=== PATIENT | female | born 1960 | race Caucasian/White ===

== ENCOUNTER 2017-05-13 09:12 | Outpatient (CLI) | payer OTHER | END 2017-05-13 09:13 | disposition critical access hospital (66) | LOC: EMS 09:12 | PROVIDERS: ATTEND Surgery | DX: R56.9 Unspecified convulsions (principal) | CPT/HCPCS: A0425; A0429 ==

== ENCOUNTER 2017-05-13 09:27 | Emergency (ER) | payer MEDICAID, OTHER ==
--- NOTE | 2017-05-13 10:28 | ED Physician Documentation ---
PD HPI SEIZURE - Stated complaint Stated Complaint: SZ - Chief complaint Chief Complaint: Neuro - History obtained from History obtained from: Patient, EMS - History of Present Illness Timing - onset: Last night (she has had headache worsening for 4 days, then with loss of consciousness last night after) Witnessed: Witnessed (this morning), Unwitnessed (last evening) Number of seizures: Multiple, Lasted minutes (1-2 minutes the one this morning; unknown last night as unwitnessed.) Description of seizure activity: Generalized Injury during seizure: Bit tongue. No: Head injury Associated symptoms: Headache (for 4 days) History of seizures: No: Known seizure disorder, Prior EtOH wdrawal sz, Prior TBI Contributing factors: No: Changed meds, Low blood sugar, EtOH withdrawal, Benzo withdrawal Similar symptoms before: Has not had sx before Recently seen: Not recently seen Review of Systems Constitutional: denies: Fever, Chills, Myalgias Eyes: reports: Loss of vision (right eye feeling blurred for 1-2 days.) Nose: denies: Rhinorrhea / runny nose, Congestion Throat: denies: Sore throat Cardiac: denies: Chest pain / pressure, Palpitations Respiratory: denies: Dyspnea, Cough GI: reports: Nausea. denies: Abdominal Pain, Vomiting, Diarrhea : denies: Dysuria, Frequency Skin: denies: Rash, Lesions Musculoskeletal: reports: Other (recent travel by plane from [place] last week.) Neurologic: reports: Generalized weakness. denies: Focal weakness, Numbness Psychiatric: denies: Depressed, Hallucinations, Anxiety, Insomnia Endocrine: denies: Weight loss, Easy bruising / bleeding Immunocompromised: denies: Immunocompromised PD PAST MEDICAL HISTORY - Past Medical History Cardiovascular: None Respiratory: None Neuro: None Endocrine/Autoimmune: None Psych: None Musculoskeletal: None Derm: None - Present Medications Home Medications: Ambulatory Orders Medication Instructions Recorded Confirmed Hydrocodone/Acetaminophen [Vicodin 1 tab PO Q6H PRN 05/13/17 05/13/17 5-300 mg Tablet] Levothyroxine Sodium [Synthroid] 88 mg PO DAILY 05/13/17 05/13/17 QUEtiapine [SEROquel] 25 mg PO DAILY PM 05/13/17 05/13/17 SUMAtriptan [Imitrex] 05/13/17 Venlafaxine ER [Effexor ER] 150 mg PO DAILY 05/13/17 05/13/17 - Allergies Allergies/Adverse Reactions: Allergies Allergy/AdvReac Type Severity Reaction Status Date / Time No Known Drug Allergies Allergy Verified 05/13/17 09:42 - Living Situation Living Situation: reports: With spouse/s.o. Living Arrangement: reports: At home - Social History Does the pt smoke?: No Does the pt drink ETOH?: Yes ETOH Use: Other (just occasional 2-3 times per week) Does the pt have substance abuse?: No - Family History Family history: reports: Non contributory, Other (no clotting disorders in family) PD ED PE NORMAL - Vitals Vital signs reviewed: Yes - General General: Alert and oriented X 3, No acute distress, Well developed/nourished - HEENT HEENT: Atraumatic, Pharynx benign, Other (left tongue abrasions c/w seizure. ) - Neck Neck: Supple, no meningeal sign, No adenopathy, No JVD, No bruit - Cardiac Cardiac: RRR, No murmur - Respiratory Respiratory: Clear bilaterally - Abdomen Abdomen: Soft, Non tender - Female Female : Deferred - Rectal Rectal: Deferred - Back Back: No CVA TTP, No spinal TTP - Derm Derm: Normal color - Extremities Extremities: No deformity, No tenderness to palpate, Normal ROM s pain, No edema , No calf tenderness / cord - Neuro Neuro: Alert and oriented X 3, solderer production line 2-12 intact, No motor deficit, No sensory deficit, Normal speech Eye Opening: Spontaneous Motor: Obeys Commands Verbal: Oriented GCS Score: 15 - Psych Psych: Normal mood, Normal affect Results - Vitals Vitals: Vital Signs - 24 hr 05/13/17 05/13/17 05/13/17 09:33 10:00 11:00 Temperature 37 C Heart Rate 74 94 90 Respiratory 20 16 16 Rate Blood Pressure 140/86 H 133/86 H 136/90 H O2 Saturation 97 96 96 05/13/17 11:33 Temperature Heart Rate 90 Respiratory 16 Rate Blood Pressure 132/85 H O2 Saturation 96 Oxygen O2 Source Room air - EKG (time done) 09:32 Rate: Rate (enter#) Rhythm: Sinus tachycardia, NSR [place]: Normal Intervals: Normal MD QRS: Normal Ischemia: Normal ST segments. No: ST elevation c/w ischemia, ST depression - Labs Labs: Laboratory Tests 05/13/17 05/13/17 05/13/17 10:51 10:51 10:51 WBC 10.4 RBC 4.80 Hgb 14.2 Hct 42.5 MCV 88.6 MCH 29.7 MCHC 33.5 RDW 13.2 Plt Count 259 MPV 6.9 L Neut # 8.7 H Lymph # 0.9 L Milam # 0.7 Eos # 0.0 Baso # 0.1 Absolute Nucleated RBC 0.01 Nucleated RBC % 0.1 PT INR APTT Sodium 138 Potassium 4.5 Chloride 106 Carbon Dioxide 21 Anion Gap 11.0 BUN 15 Creatinine 0.8 Estimated GFR (MDRD) 74 L Glucose 113 H Calcium 8.8 Total Bilirubin 0.2 AST 32 ALT 35 Alkaline Phosphatase 96 Total Creatine Kinase 301 H Total Protein 7.1 Albumin 4.2 Globulin 2.9 Albumin/Globulin Ratio 1.4 Lipase 16 L TSH 4.78 Urine Color Urine Clarity Urine pH Ur Specific [place] Urine Protein Urine Glucose (UA) Urine Ketones Urine Occult Blood Urine Nitrite Urine Bilirubin Urine Urobilinogen Ur Leukocyte Esterase Urine RBC Urine WBC Ur Squamous Epith Cells Urine Bacteria Ur Microscopic Review Urine Culture Comments Urine Opiates Screen Ur Oxycodone Screen Urine Methadone Screen Ur Propoxyphene Screen Ur Barbiturates Screen Ur Tricyclics Screen Ur Phencyclidine Scrn Ur Amphetamine Screen U Methamphetamines Scrn U Benzodiazepines Scrn Urine Cocaine Screen U Cannabinoids Screen Ethyl Alcohol < 5.0 05/13/17 05/13/17 10:51 11:59 WBC RBC Hgb Hct MCV MCH MCHC RDW Plt Count MPV Neut # Lymph # [place] # Eos # Baso # Absolute Nucleated RBC Nucleated RBC % PT 11.2 INR 1.0 APTT 28.6 Sodium Potassium Chloride Carbon Dioxide Anion Gap BUN Creatinine Estimated GFR (MDRD) Glucose Calcium Total Bilirubin AST ALT Alkaline Phosphatase Total Creatine Kinase Total Protein Albumin Globulin Albumin/Globulin Ratio Lipase TSH Urine Color YELLOW Urine Clarity CLEAR Urine pH 6.0 Ur Specific [place] 1.015 Urine Protein NEGATIVE Urine Glucose (UA) NEGATIVE Urine Ketones NEGATIVE Urine Occult Blood SMALL H Urine Nitrite NEGATIVE Urine Bilirubin NEGATIVE Urine Urobilinogen 0.2 (NORMAL) Ur Leukocyte Esterase NEGATIVE Urine RBC 0-5 Urine WBC 0-3 Ur Squamous Epith Cells FEW Squamous Urine Bacteria Few Ur Microscopic Review INDICATED Urine Culture Comments NOT INDICATED Urine Opiates Screen NEGATIVE Ur Oxycodone Screen NEGATIVE Urine Methadone Screen NEGATIVE Ur Propoxyphene Screen NEGATIVE Ur Barbiturates Screen NEGATIVE Ur Tricyclics Screen NEGATIVE Ur Phencyclidine Scrn NEGATIVE Ur Amphetamine Screen NEGATIVE U Methamphetamines Scrn NEGATIVE U Benzodiazepines Scrn NEGATIVE Urine Cocaine Screen NEGATIVE U Cannabinoids Screen NEGATIVE Ethyl Alcohol - Rads (name of study) head CT Radiology: Prelim report reviewed (extensive dural sinus thrombosis) PD MEDICAL DECISION MAKING - ED course Complexity details: reviewed results, considered differential, d/w patient, d/w jewelry consultant (Dr. Lozoya, [facility], who referred it to [facility]. Talked with Zee Jefferson, Neurology, who accepts transfer. ) Departure - Departure Disposition: 02 Transfer Acute Care Hosp Clinical Impression: New onset seizure, Dural venous sinus thrombosis Headache Qualifiers: Headache type: unspecified Headache chronicity pattern: acute headache Intractability: intractable Qualified Code(s): R51 - Headache Condition: Stable Record reviewed to determine appropriate education?: Yes
[2017-05-13] MEDS ORDERED: SODIUM CHLORIDE 0.9% 1,000 ML IV ONE (10:44)
[2017-05-13] MEDS ORDERED: ACETAMINOPHEN 325 MG TABLET PO STA (10:44)
[2017-05-13] MEDS ORDERED: ACETAMINOPHEN 325 MG TABLET PO ONE (10:52)
[2017-05-13 10:55] LABS: BASOPHILS # (AUTO) 0.1 10^3/uL (0.0-0.1); BASOPHILS % (AUTO) 0.5 %; EOSINOPHILS % (AUTO) 0.2 %; HCT - HEMATOCRIT 42.5 % (37.0-47.0); HGB - HEMOGLOBIN 14.2 g/dL (12.0-16.0); LYMPHOCYTES # (AUTO) 0.9 10^3/uL (1.5-3.5); LYMPHOCYTES % (AUTO) 8.6 %; MEAN CORPUSCULAR HEMOGLOBIN 29.7 pg (27.0-31.0); MEAN CORPUSCULAR HGB CONC 33.5 g/dL (32.0-36.0); MEAN CORPUSCULAR VOLUME 88.6 fL (81.0-99.0); MEAN PLATELET VOLUME 6.9 fL (7.9-10.8); MONOCYTES # (AUTO) 0.7 10^3/uL (0.0-1.0); MONOCYTES % (AUTO) 6.8 %; NEUTROPHILS # (AUTO) 8.7 10^3/uL (1.5-6.6); NEUTROPHILS % (AUTO) 83.9 %; NUCLEATED RED BLOOD CELLS AUTO 0.1 /100WBC; RED CELL DISTRIBUTION WIDTH 13.2 % (12.0-15.0); UNCORRECTED WHITE BLOOD COUNT 10.4 x10^3/uL; WHITE BLOOD COUNT 10.4 x10^3/uL (4.8-10.8)
[2017-05-13 11:11] LABS: ALBUMIN/GLOBULIN RATIO 1.4 (1.0-2.2); BILIRUBIN,TOTAL 0.2 mg/dL (0.2-1.0); BUN - BLOOD UREA NITROGEN 15 mg/dL (6-20); CALCIUM 8.8 mg/dL (8.5-10.3); CARBON DIOXIDE - CO2 21 mmol/L (21-32); CHLORIDE 106 mmol/L (101-111); CREATININE 0.8 mg/dL (0.4-1.0); GFR - MDRD 74 (>89); GLUCOSE 113 mg/dL (70-100); LIPASE 16 U/L (22-51); POTASSIUM 4.5 mmol/L (3.5-5.0); SODIUM 138 mmol/L (135-145); TOTAL PROTEIN 7.1 g/dL (6.7-8.2)
--- NOTE | 2017-05-13 11:34 | CT Preliminary Report ---
Exam: CT HEAD W/O IMPRESSION: 1. Extensive dural sinus thrombosis. CT venography could be done as baseline exam for subsequent foll ow-up. CRITICAL RESULT: The findings were discussed with Dr. Melendez on date of exam at 11:29 AM. [facility] SITE ID: [id number]
--- NOTE | 2017-05-13 11:36 | CT Report ---
EXAM: CT HEAD EXAM DATE: 05/13/2017 11:06 AM. CLINICAL HISTORY: Headache 4 days; seizure last night/today. COMPARISON: None. TECHNIQUE: Multiaxial CT images were obtained from the foramen magnum to the vertex. Reformats: Coron al. IV contrast: None. In accordance with CT protocol optimization, one or more of the following dose reduction techniques w ere utilized for this exam: automated exposure control, adjustment of mA and/or KV based on patient s ize, or use of iterative reconstructive technique. FINDINGS: Parenchyma: No intraparenchymal hemorrhage. No evidence of mass, midline shift, or CT findings of inf arction. Lundberg-white differentiation is distinct. Extraaxial Spaces: Extensive elongated hyperdensity within superior sagittal sinus, right anterior f rontal cortical veins and possibly transverse sinuses. Findings are compatible with dural sinus throm bosis. Ventricles: Normal in size and position. Sinuses and Orbits: Imaged paranasal sinuses, orbits, and mastoids show no significant abnormality. Bones: No evidence of fracture or calvarial defect. Other: None. IMPRESSION: 1. Extensive dural sinus thrombosis. CT venography could be done as baseline exam for subsequent foll ow-up. CRITICAL RESULT: The findings were discussed with Dr. Melendez on date of exam at 11:29 AM. [facility] Referring Provider Line: [phone] SITE ID: [id number]
[2017-05-13] MEDS ORDERED: HEPARIN 25,000 UNITS/500 ML NS 25,000 UNIT/500 ML BAG IV STA (11:44)
[2017-05-13] MEDS ORDERED: HEPARIN 5,000 UNIT/ML VIAL IVP STA (11:44)
[2017-05-13 11:59] LABS: PT - PROTHROMBIN TIME 11.2 secs (9.9-12.6)
[2017-05-13 12:06] LABS: PARTIAL THROMBOPLASTIN TIME 28.6 secs (24.9-33.3)
[2017-05-13] MEDS ORDERED: HEPARIN 25,000 UNITS/500 ML NS 25,000 UNIT/500 ML BAG IV ONE (12:06)
[2017-05-13] MEDS ORDERED: HEPARIN 5,000 UNIT/ML VIAL ONE (12:06)
[2017-05-13] MEDS ORDERED: levETIRAcetam INJ 500 MG in SODIUM CHLORIDE 0.9% 100ML 100 ML IV STA (12:13)
[2017-05-13] MEDS ORDERED: HYDROmorphone 0.5 MG/0.5 ML SYRINGE IVP STA (12:33)
[2017-05-13] MEDS ORDERED: HYDROmorphone 1 MG/ML SYRINGE ONE (12:36)
[2017-05-13] MEDS ORDERED: diazePAM INJ 5 MG/ML SYRINGE IVP STA (12:57)
[2017-05-13 13:05] LABS: BILIRUBIN,URINE NEGATIVE (NEGATIVE)
[2017-05-13 13:07] LABS: UA w/ MICROSCOPIC CHARGE YES
[2017-05-13] MEDS ORDERED: diazePAM INJ 5 MG/ML SYRINGE ONE (13:09)
[2017-05-13 13:26] LABS: UR CULTURE IF IND NOT INDICATED; WBC,URINE 0-3 /HPF (0-5)
[2017-05-13 15:20] VITALS: BP 111/68
== END 2017-05-13 15:20 | disposition short-term general hospital (02) ==
LOC: EDUNIT# → ED 09:27
DX: R56.9 Unspecified convulsions (principal); I82.890 Acute embolism and thrombosis of other specified veins; R51 Headache
CPT/HCPCS: 36415; 70450; 80053; 80306; 80320; 81001; 82550; 83690; 84443; 85025; 85610; 85730; 93005; 96361; 96365; 96366; 96368; 96375; 96376; 99284; 99285; A9270; J1170; 81003; 87086

== ENCOUNTER 2017-05-13 15:30 | Outpatient (CLI) | payer OTHER | END 2017-05-13 15:31 | disposition short-term general hospital (02) | LOC: EMS 15:30 | PROVIDERS: ATTEND Surgery | DX: R56.9 Unspecified convulsions (principal) | CPT/HCPCS: A0170; A0425; A0426 ==

== ENCOUNTER 2017-05-19 13:28 | Outpatient (CLI) | payer OTHER | END 2017-05-19 13:29 | disposition home or self-care (01) | LOC: LAB 13:28 | PROVIDERS: ATTEND Family Medicine | DX: G08 Intracranial and intraspinal phlebitis and thrombophlebitis (principal) | CPT/HCPCS: 85610 ==

== ENCOUNTER 2017-05-20 15:50 | Outpatient (CLI) | payer OTHER ==
[2017-05-20 16:34] LABS: INR 2.4 (0.8-1.2); PT - PROTHROMBIN TIME 25.7 secs (9.9-12.6)
== END 2017-05-20 15:51 | disposition home or self-care (01) ==
LOC: LAB 15:50
PROVIDERS: ATTEND Family Medicine
DX: G08 Intracranial and intraspinal phlebitis and thrombophlebitis (principal)
CPT/HCPCS: 36415; 85610

== ENCOUNTER 2017-05-25 15:58 | Outpatient (CLI) | payer OTHER | END 2017-05-25 15:59 | disposition home or self-care (01) | LOC: LAB 15:58 | PROVIDERS: ATTEND Family Medicine | DX: Z79.01 Long term (current) use of anticoagulants (principal); G08 Intracranial and intraspinal phlebitis and thrombophlebitis | CPT/HCPCS: 85610 ==

== ENCOUNTER 2017-05-27 12:03 | Outpatient (CLI) | payer OTHER | END 2017-05-27 12:04 | disposition home or self-care (01) | LOC: LAB 12:03 | PROVIDERS: ATTEND Family Medicine | DX: G08 Intracranial and intraspinal phlebitis and thrombophlebitis (principal) | CPT/HCPCS: 85610 ==

== ENCOUNTER 2017-05-30 11:11 | Outpatient (CLI) | payer OTHER ==
[2017-05-30 12:00] LABS: INR 3.6 (0.8-1.2); PT - PROTHROMBIN TIME 38.4 secs (9.9-12.6)
== END 2017-05-30 11:12 | disposition home or self-care (01) ==
LOC: LAB 11:11
PROVIDERS: ATTEND Family Medicine
DX: G08 Intracranial and intraspinal phlebitis and thrombophlebitis (principal)
CPT/HCPCS: 36415; 85610

== ENCOUNTER 2017-06-03 14:01 | Outpatient (CLI) | payer OTHER | END 2017-06-03 14:02 | disposition home or self-care (01) | LOC: LAB 14:01 | PROVIDERS: ATTEND Family Medicine | DX: G08 Intracranial and intraspinal phlebitis and thrombophlebitis (principal) | CPT/HCPCS: 85610 ==

== ENCOUNTER 2017-06-06 13:51 | Outpatient (CLI) | payer OTHER | END 2017-06-06 13:52 | disposition home or self-care (01) | LOC: LAB 13:51 | PROVIDERS: ATTEND Family Medicine | DX: G08 Intracranial and intraspinal phlebitis and thrombophlebitis (principal) | CPT/HCPCS: 85610 ==

== ENCOUNTER 2017-11-11 13:33 | Outpatient (CLI) | payer MEDICAID | END 2017-11-11 13:34 | disposition home or self-care (01) | LOC: LAB 13:33 | PROVIDERS: ATTEND Family Medicine | DX: D68.52 Prothrombin gene mutation (principal); Z79.01 Long term (current) use of anticoagulants | CPT/HCPCS: 36415; 85610 ==

== ENCOUNTER 2018-05-29 15:36 | Outpatient (CLI) | payer MEDICAID ==
[2018-05-29 16:09] LABS: PT - PROTHROMBIN TIME 51.7 secs (9.9-12.6)
[2018-05-29 16:20] LABS: INR 4.6 (0.8-1.2)
== END 2018-05-29 15:37 | disposition home or self-care (01) ==
LOC: LAB 15:36
PROVIDERS: ATTEND Family Medicine
DX: G08 Intracranial and intraspinal phlebitis and thrombophlebitis (principal); D68.52 Prothrombin gene mutation; Z79.01 Long term (current) use of anticoagulants
CPT/HCPCS: 36415; 85610

== ENCOUNTER 2018-06-05 16:07 | Outpatient (CLI) | payer MEDICAID | END 2018-06-05 16:08 | disposition home or self-care (01) | LOC: LAB 16:07 | PROVIDERS: ATTEND Family Medicine | DX: G08 Intracranial and intraspinal phlebitis and thrombophlebitis (principal); D68.52 Prothrombin gene mutation; Z79.01 Long term (current) use of anticoagulants | CPT/HCPCS: 85610 ==